=== PATIENT | female | born 1955 | race Caucasian/White ===

== ENCOUNTER 2021-07-14 01:32 | Inpatient (IN) ==
[2021-07-14] MEDS ORDERED: Ondansetron 4 MG/2 ML VIAL IVP PRN (02:43)
[2021-07-14] MEDS ORDERED: Naloxone 0.4 MG/ML INJ IVP PRN (02:43)
[2021-07-14] MEDS ORDERED: Dextrose Gel 15 GM/37.5 ML TUBE PO PRN ×2 (04:11)
[2021-07-14] MEDS ORDERED: D5% in Water 1,000 ML IVC PRN (04:11)
[2021-07-14] MEDS ORDERED: *HR* Dextrose 50 % in Water (Vial) 50 ML VIAL IVP PRN (04:11)
[2021-07-14 04:18] LABS: Basophils % 0.5 %; Eosinophils # 0.4 K/mcL (0.0-0.6); Eosinophils % 5.4 %; Hematocrit 27.5 % (35.3-44.9); Hemoglobin 8.6 g/dL (11.5-15.4); Immature Granulocytes % 0.4 % (0-4); Lymphocytes # 2.5 K/mcL (0.6-4.6); Lymphocytes % 33.5 %; Mean Corpuscular HGB Conc 31.3 g/dL (31.6-35.5); Mean Corpuscular Hemoglobin 27.5 pg (28.0-33.3); Mean Corpuscular Volume 87.9 fL (83.0-100.0); Mean Platelet Volume 11.1 fL (9.4-12.4); Monocytes # 0.7 K/mcL (0.0-1.3); Monocytes % 9.7 %; Neutrophils # 3.8 K/mcL (1.6-8.9); Platelet Count 156 K/mcL (140-400); Red Blood Count 3.13 M/mcL (3.82-4.97); Red Cell Distribution Width 12.3 % (11.5-14.5); Segmented Neutrophils % 50.5 %; White Blood Count 7.6 K/mcL (4.3-11.1)
[2021-07-14 04:36] LABS: Calcium 9.7 mg/dL (8.6-10.3); Magnesium 2.1 mg/dL (1.6-2.6); Potassium 5.1 mEq/L (3.5-5.1)
[2021-07-14 04:37] LABS: Troponin I 0.03 ng/mL (< 0.04)
[2021-07-14 06:04] LABS: Prothrombin Time 11.7 Seconds (9.4-12.1)
[2021-07-14] MEDS: Insulin LISPRO 300 UNITS/3 ML VIAL SUBQ SCH ×4 (08:00→20:45)
[2021-07-14] MEDS ORDERED: Perflutren Lipid Microsphere 1.3 ML in 0.9 % Sodium Chloride 8.7 ML IVP PRN (09:42)
[2021-07-14] MEDS ORDERED: 0.9 % Sodium Chloride 1,000 ML IVC SCH (09:45)
[2021-07-14] MEDS ORDERED: Isosorbide MONOnitrate (24 HR) 30 MG TAB.ER.24H PO SCH (11:00)
[2021-07-14] MEDS ORDERED: Regadenoson 0.4 MG/5 ML SYRINGE IVP ONE (11:17)
[2021-07-14] MEDS ORDERED: Gabapentin 300 MG CAPSULE PO SCH (15:00)
[2021-07-14] MEDS ORDERED: Heparin 25,000UNIT/250ML 1/2NS 25,000 UNIT/250 ML IV.SOLN IVC SCH (15:00)
[2021-07-14] MEDS ORDERED: *HR* Heparin 5,000 UNIT/ML VIAL IVP ONE (15:00)
[2021-07-14] MEDS ORDERED: *HR* Heparin 5,000 UNIT/ML VIAL IVP PRN (15:00)
[2021-07-14] MEDS: carvediloL 6.25 MG TABLET PO SCH (15:58)
[2021-07-14 16:03] LABS: Hematocrit 35.2 % (35.3-44.9); Mean Corpuscular HGB Conc 31.3 g/dL (31.6-35.5); Mean Corpuscular Hemoglobin 27.3 pg (28.0-33.3); Mean Corpuscular Volume 87.3 fL (83.0-100.0); Mean Platelet Volume 10.4 fL (9.4-12.4); Platelet Count 185 K/mcL (140-400); Red Blood Count 4.03 M/mcL (3.82-4.97); Red Cell Distribution Width 12.2 % (11.5-14.5); White Blood Count 9.3 K/mcL (4.3-11.1)
[2021-07-14 16:14] LABS: Prothrombin Time 11.6 Seconds (9.4-12.1)
[2021-07-14 16:17] LABS: Activated Partial Thrombo Time 22.7 Seconds (26.0-36.0)
[2021-07-14] MEDS: Heparin 25,000UNIT/250ML 1/2NS 25,000 UNIT/250 ML IV.SOLN IVC SCH (16:42)
[2021-07-14] MEDS: Acetaminophen 325 MG TABLET PO PRN (17:22)
[2021-07-14] MEDS: Pantoprazole 40 MG VIAL IVP SCH (18:04)
[2021-07-14] MEDS: Insulin DETEMIR 100 UNIT/ML X5UNITS SUBQ SCH (20:45)
[2021-07-14] MEDS: Gabapentin 300 MG CAPSULE PO SCH (20:45)
[2021-07-14] MEDS ORDERED: Apixaban 5 MG TABLET PO SCH (21:00)
[2021-07-15 00:35] LABS: Hematocrit 32.5 % (35.3-44.9); Hemoglobin 10.3 g/dL (11.5-15.4); Mean Corpuscular HGB Conc 31.7 g/dL (31.6-35.5); Mean Corpuscular Hemoglobin 27.4 pg (28.0-33.3); Mean Corpuscular Volume 86.4 fL (83.0-100.0); Mean Platelet Volume 10.9 fL (9.4-12.4); Platelet Count 189 K/mcL (140-400); Red Blood Count 3.76 M/mcL (3.82-4.97); Red Cell Distribution Width 12.4 % (11.5-14.5); White Blood Count 8.6 K/mcL (4.3-11.1)
[2021-07-15 00:48] LABS: Estimated Average Glucose 217 mg/dl; Hemoglobin A1C 9.2 %
[2021-07-15 00:54] LABS: Albumin 3.5 g/dL (3.5-5.7); Albumin/Globulin Ratio 1.1 (1.1-2.2); Bilirubin,Total 0.3 mg/dL (0.3-1.0); Calcium 8.9 mg/dL (8.6-10.3); Globulin 3.1 g/dL (2.4-3.5); Potassium 5.1 mEq/L (3.5-5.1); Total Protein 6.6 g/dL (6.4-8.9)
[2021-07-15] MEDS: Insulin LISPRO 300 UNITS/3 ML VIAL SUBQ SCH ×6 (06:52→20:48)
[2021-07-15] MEDS: Isosorbide MONOnitrate (24 HR) 30 MG TAB.ER.24H PO SCH ×2 (06:53→08:45)
[2021-07-15] MEDS: Pantoprazole 40 MG VIAL IVP SCH ×2 (07:03→16:48)
[2021-07-15] MEDS: Aspirin Enteric Coated 81 MG Tablet PO SCH (08:45)
[2021-07-15] MEDS: Gabapentin 300 MG CAPSULE PO SCH ×2 (08:45→20:47)
[2021-07-15] MEDS: carvediloL 6.25 MG TABLET PO SCH ×2 (08:45→16:47)
[2021-07-15] MEDS: Insulin DETEMIR 100 UNIT/ML X5UNITS SUBQ SCH ×2 (08:54→20:48)
[2021-07-15] MEDS ORDERED: lisinopriL 10 MG TABLET PO SCH (09:00)
[2021-07-15] MEDS: Heparin 25,000UNIT/250ML 1/2NS 25,000 UNIT/250 ML IV.SOLN IVC SCH (16:49)
[2021-07-15 17:19] LABS: Bilirubin,Urine Negative (Negative); Blood,Urine Negative (Negative); Clarity,Urine Clear (Clear); Color,Urine Colorless (Yellow); Glucose,Urine (UA) 100 mg/dL (Normal); Ketones,Urine Negative (Negative); Leukocyte Esterase,Urine Negative (Negative); Nitrite,Urine Negative (Negative); Protein,Urine 70 mg/dL (Neg-Trace); RBC,Urine 0-3 per hpf (0-3); Specific Gravity,Urine 1.009 (1.010-1.025); Squamous Epithelial Cell,Urine Few per hpf (None-Few); Urobilinogen,Urine Normal (Normal); WBC,Urine 0-3 per hpf (0-3)
[2021-07-15 17:46] LABS: Sodium, Urine 62.8 mEq/L
[2021-07-15] MEDS: Loratadine 10 MG TABLET PO PRN ×2 (20:48)
[2021-07-15] MEDS: Acetaminophen 325 MG TABLET PO PRN (20:48)
[2021-07-15] MEDS: Menthol 1 EACH LOZENGE PO PRN (21:00)
[2021-07-16 00:24] LABS: Hematocrit 31.5 % (35.3-44.9); Mean Corpuscular HGB Conc 31.7 g/dL (31.6-35.5); Mean Corpuscular Hemoglobin 27.6 pg (28.0-33.3); Mean Platelet Volume 10.5 fL (9.4-12.4); Platelet Count 169 K/mcL (140-400); Red Blood Count 3.62 M/mcL (3.82-4.97); Red Cell Distribution Width 12.2 % (11.5-14.5); White Blood Count 7.5 K/mcL (4.3-11.1)
[2021-07-16 00:42] LABS: Uric Acid 6.9 mg/dL (2.3-7.6)
[2021-07-16 00:43] LABS: Albumin 3.4 g/dL (3.5-5.7); Albumin/Globulin Ratio 1.1 (1.1-2.2); Bilirubin,Total 0.3 mg/dL (0.3-1.0); Calcium 9.4 mg/dL (8.6-10.3); Potassium 4.6 mEq/L (3.5-5.1); Total Protein 6.4 g/dL (6.4-8.9)
[2021-07-16 03:47] LABS: Hepatitis B Core IgM Nonreactive (Nonreactive)
[2021-07-16] MEDS: Aspirin Enteric Coated 81 MG Tablet PO SCH (08:27)
[2021-07-16] MEDS: Isosorbide MONOnitrate (24 HR) 30 MG TAB.ER.24H PO SCH (08:27)
[2021-07-16] MEDS: carvediloL 6.25 MG TABLET PO SCH ×2 (08:27→17:00)
[2021-07-16] MEDS: Pantoprazole 40 MG VIAL IVP SCH ×2 (08:27→17:00)
[2021-07-16] MEDS: Heparin 25,000UNIT/250ML 1/2NS 25,000 UNIT/250 ML IV.SOLN IVC SCH (08:28)
[2021-07-16] MEDS: Insulin LISPRO 300 UNITS/3 ML VIAL SUBQ SCH ×4 (08:28→20:15)
[2021-07-16] MEDS: Gabapentin 300 MG CAPSULE PO SCH ×2 (08:29→20:14)
[2021-07-16] MEDS: Insulin DETEMIR 100 UNIT/ML X5UNITS SUBQ SCH ×2 (08:29→20:14)
[2021-07-16 09:58] LABS: Hepatitis B Surface Antigen Nonreactive (Nonreactive)
[2021-07-16 10:26] LABS: Hepatitis C Virus Antibody Nonreactive (Nonreactive)
[2021-07-16 10:28] LABS: Hepatitis A Antibody IgM Nonreactive (Nonreactive)
[2021-07-16] MEDS: Menthol 1 EACH LOZENGE PO PRN (17:10)
[2021-07-16] MEDS: *HR* OxyCODONE/APAP 10/325 TABLET PO PRN (20:14)
[2021-07-17] MEDS: *HR* Heparin 5,000 UNIT/ML VIAL IVP PRN ×2 (00:15→18:02)
[2021-07-17] MEDS: Heparin 25,000UNIT/250ML 1/2NS 25,000 UNIT/250 ML IV.SOLN IVC SCH (02:51)
[2021-07-17] MEDS: Sodium Bicarbonate 75 MEQ in 0.45 % Sodium Chloride 1,000 ML IVC SCH ×2 (05:29→19:46)
[2021-07-17] MEDS: Pantoprazole 40 MG VIAL IVP SCH ×2 (05:29→17:15)
[2021-07-17 08:12] LABS: Hematocrit 32.7 % (35.3-44.9); Hemoglobin 10.3 g/dL (11.5-15.4); Mean Corpuscular HGB Conc 31.5 g/dL (31.6-35.5); Mean Corpuscular Hemoglobin 27.3 pg (28.0-33.3); Mean Corpuscular Volume 86.7 fL (83.0-100.0); Mean Platelet Volume 10.5 fL (9.4-12.4); Platelet Count 167 K/mcL (140-400); Red Blood Count 3.77 M/mcL (3.82-4.97); Red Cell Distribution Width 12.4 % (11.5-14.5)
[2021-07-17] MEDS: Insulin LISPRO 300 UNITS/3 ML VIAL SUBQ SCH ×4 (08:29→21:33)
[2021-07-17 08:30] LABS: Albumin 3.5 g/dL (3.5-5.7); Albumin/Globulin Ratio 1.2 (1.1-2.2); Bilirubin,Total 0.4 mg/dL (0.3-1.0); Calcium 9.4 mg/dL (8.6-10.3); Potassium 4.8 mEq/L (3.5-5.1); Total Protein 6.5 g/dL (6.4-8.9)
[2021-07-17] MEDS: Isosorbide MONOnitrate (24 HR) 30 MG TAB.ER.24H PO SCH (09:03)
[2021-07-17] MEDS: carvediloL 6.25 MG TABLET PO SCH ×2 (09:03→17:14)
[2021-07-17] MEDS: Aspirin Enteric Coated 81 MG Tablet PO SCH (09:03)
[2021-07-17] MEDS: Insulin DETEMIR 100 UNIT/ML X5UNITS SUBQ SCH ×2 (09:04→21:32)
[2021-07-17] MEDS: Gabapentin 300 MG CAPSULE PO SCH ×2 (09:04→21:32)
[2021-07-17] MEDS: Loratadine 10 MG TABLET PO PRN (09:44)
[2021-07-17] MEDS: *HR* OxyCODONE/APAP 10/325 TABLET PO PRN (17:18)
[2021-07-18 01:31] LABS: Hematocrit 30.1 % (35.3-44.9); Hemoglobin 9.5 g/dL (11.5-15.4); Mean Corpuscular HGB Conc 31.6 g/dL (31.6-35.5); Mean Corpuscular Volume 85.5 fL (83.0-100.0); Platelet Count 158 K/mcL (140-400); Red Blood Count 3.52 M/mcL (3.82-4.97); Red Cell Distribution Width 12.2 % (11.5-14.5); White Blood Count 7.3 K/mcL (4.3-11.1)
[2021-07-18 01:53] LABS: Albumin 3.3 g/dL (3.5-5.7); Albumin/Globulin Ratio 1.3 (1.1-2.2); Bilirubin,Total 0.3 mg/dL (0.3-1.0); Calcium 8.6 mg/dL (8.6-10.3); Globulin 2.6 g/dL (2.4-3.5); Potassium 4.1 mEq/L (3.5-5.1); Total Protein 5.9 g/dL (6.4-8.9)
[2021-07-18] MEDS: Pantoprazole 40 MG VIAL IVP SCH ×2 (06:16→16:56)
[2021-07-18] MEDS: Heparin 25,000UNIT/250ML 1/2NS 25,000 UNIT/250 ML IV.SOLN IVC SCH (07:53)
[2021-07-18] MEDS: Sodium Bicarbonate 75 MEQ in 0.45 % Sodium Chloride 1,000 ML IVC SCH ×2 (09:49→22:21)
[2021-07-18] MEDS: carvediloL 6.25 MG TABLET PO SCH ×2 (09:50→16:56)
[2021-07-18] MEDS: Aspirin Enteric Coated 81 MG Tablet PO SCH (09:50)
[2021-07-18] MEDS: Insulin LISPRO 300 UNITS/3 ML VIAL SUBQ SCH ×4 (09:50→22:07)
[2021-07-18] MEDS: Isosorbide MONOnitrate (24 HR) 30 MG TAB.ER.24H PO SCH (09:50)
[2021-07-18] MEDS: Gabapentin 300 MG CAPSULE PO SCH ×2 (09:50→22:06)
[2021-07-18] MEDS: Insulin DETEMIR 100 UNIT/ML X5UNITS SUBQ SCH ×2 (09:54→22:07)
[2021-07-18] MEDS ORDERED: *HR* Heparin 10,000 UNIT/10 ML VIAL ONE (10:46)
[2021-07-18] MEDS ORDERED: Nitroglycerin 1,000 MCG/5 ML VIAL IV ONE (10:46)
[2021-07-18] MEDS ORDERED: *HR* Midazolam HCl 2 MG/2 ML VIAL ONE (10:46)
[2021-07-18] MEDS ORDERED: ISOVUE-370 200 ML INFUS..BTL ONE (10:46)
[2021-07-18] MEDS ORDERED: 0.9 % Sodium Chloride 1,000 ML ONE (10:46)
[2021-07-18] MEDS ORDERED: *HR* FentaNYL (PF) 100 MCG/2 ML VIAL ONE (10:46)
[2021-07-18] MEDS ORDERED: Heparin 1,000 UNITS/500 mL 500 ML ONE (10:46)
[2021-07-18] MEDS ORDERED: 0.9 % Sodium Chloride 1,000 ML IVC SCH (12:15)
[2021-07-18] MEDS: Loratadine 10 MG TABLET PO PRN (13:48)
[2021-07-18] MEDS: *HR* OxyCODONE/APAP 10/325 TABLET PO PRN (22:06)
[2021-07-18] MEDS: Ranolazine 500 MG TAB.ER.12H PO SCH (22:07)
[2021-07-19] MEDS: Pantoprazole 40 MG VIAL IVP SCH (05:12)
[2021-07-19 06:30] LABS: Hematocrit 32.4 % (35.3-44.9); Hemoglobin 10.4 g/dL (11.5-15.4); Mean Corpuscular HGB Conc 32.1 g/dL (31.6-35.5); Mean Corpuscular Hemoglobin 27.4 pg (28.0-33.3); Mean Corpuscular Volume 85.5 fL (83.0-100.0); Mean Platelet Volume 11.1 fL (9.4-12.4); Platelet Count 152 K/mcL (140-400); Red Blood Count 3.79 M/mcL (3.82-4.97); Red Cell Distribution Width 12.4 % (11.5-14.5); White Blood Count 6.9 K/mcL (4.3-11.1)
[2021-07-19 06:50] LABS: Albumin 3.6 g/dL (3.5-5.7); Albumin/Globulin Ratio 1.4 (1.1-2.2); Bilirubin,Total 0.3 mg/dL (0.3-1.0); Calcium 8.9 mg/dL (8.6-10.3); Globulin 2.5 g/dL (2.4-3.5); Total Protein 6.1 g/dL (6.4-8.9)
[2021-07-19] MEDS: Insulin LISPRO 300 UNITS/3 ML VIAL SUBQ SCH ×2 (07:29→11:53)
[2021-07-19] MEDS: Gabapentin 300 MG CAPSULE PO SCH (07:36)
[2021-07-19] MEDS: carvediloL 6.25 MG TABLET PO SCH (07:36)
[2021-07-19] MEDS: Ranolazine 500 MG TAB.ER.12H PO SCH (07:36)
[2021-07-19] MEDS: Isosorbide MONOnitrate (24 HR) 30 MG TAB.ER.24H PO SCH (07:37)
[2021-07-19 10:26] VITALS: BP 137/57; PULSE 77; TEMP 98.5; O2SAT 96
[2021-07-19] MEDS: *HR* OxyCODONE/APAP 10/325 TABLET PO PRN (10:44)
[2021-07-19] MEDS: Loratadine 10 MG TABLET PO PRN (10:45)
[2021-07-19] MEDS: Insulin DETEMIR 100 UNIT/ML X5UNITS SUBQ SCH (11:53)
== END 2021-07-19 13:59 | disposition home or self-care (01) | DRG 287 ==
LOC: CDU → SUATTDRO 01:32
PROVIDERS: ADMIT Pharmacist; ATTEND Hospitalist